=== PATIENT | female | born 1955 | race Caucasian/White ===

== ENCOUNTER 2019-06-23 14:40 | Inpatient (IN) | payer OTHER ==
[~2019-06-23] VITALS: Ht 160 cm; Wt 63.5 kg
[2019-06-30] MEDS ORDERED: TAMOXIFEN CITRA20 MG PO (10:02)
[2019-06-30] MEDS ORDERED: LEVSIN0.125 MG PO (10:03)
[2019-06-30] MEDS ORDERED: CIPRO XR 500 M500 MG PO (10:03)
[2019-06-30] MEDS ORDERED: FLAGYL500MG PO (10:03)
[2019-06-30] MEDS ORDERED: FIORINAL 50-321 EACH PO (10:04)
[2019-06-30] MEDS ORDERED: RELAFEN PO (10:04)
[2019-07-12] MEDS ORDERED: NABUMETONE500 MG (07:57)
[2019-07-15] MEDS ORDERED: OMEPRAZOLE20 MG PO (09:35)
[2019-07-15] MEDS ORDERED: INTESTINEX680 M1 PO (09:35)
[2019-07-15] MEDS ORDERED: PERCOCET 5-3251 EACH PO (09:35)
== END 2019-07-15 11:19 | disposition home or self-care (01) | DRG 330 ==
LOC: SURH 07-12 05:10 → O/R 07-12 05:10 → SURH 07-12 07:00
PROVIDERS: ADMIT Surgery
PROC: 0DJD8ZZ Inspection of Lower Intestinal Tract, Via Natural or Artificial Opening Endoscopic (ICD-10-PCS; 2019-07-12)
PROC: 0DTN4ZZ Resection of Sigmoid Colon, Percutaneous Endoscopic Approach (ICD-10-PCS; principal; 2019-07-12 07:00)
DX: K57.32 Diverticulitis of large intestine without perforation or abscess without bleeding (principal); D59.1 Other autoimmune hemolytic anemias; D69.49 Other primary thrombocytopenia

== ENCOUNTER 2021-02-20 06:31 | Day surgery (SDC) | payer OTHER ==
[~2021-02-20 06:31] MED LIST: CIPRO XR 500 M500 MG PO; FIORINAL 50-321 EACH PO; FLAGYL500MG PO; INTESTINEX680 M1 PO; LEVSIN0.125 MG PO; NABUMETONE500 MG; OMEPRAZOLE20 MG PO; PERCOCET 5-3251 EACH PO; RELAFEN PO; TAMOXIFEN CITRA20 MG PO
== END 2021-02-20 11:35 | disposition home or self-care (01) ==
LOC: AMB-ENDOS 06:31
PROVIDERS: ATTEND Surgery
DX: K62.89 Other specified diseases of anus and rectum (principal); K64.4 Residual hemorrhoidal skin tags